=== PATIENT | male | born 1965 | race African-American/Black ===

== ENCOUNTER 2016-09-17 01:36 | Emergency (ER) | payer MEDICAID ==
[~2016-09-17] VITALS: Ht 177.8 cm; Wt 109.0 kg
[2016-09-17 01:40] VITALS: BP 128/86
== END 2016-09-17 04:00 | disposition left against medical advice (07) ==
LOC: ER 01:36
DX: R06.02 Shortness of breath (principal); Z53.21 Procedure and treatment not carried out due to patient leaving prior to being seen by health care provider

== ENCOUNTER 2016-10-19 15:32 | Emergency (ER) | payer MEDICAID ==
[~2016-10-19] VITALS: Ht 180.3 cm; Wt 120.0 kg
[~2016-10-19 15:32] MED LIST: COR6 PO; IOHEXOL-300 100 ML BOTTLE ONE; LISI-186 PO; SODIUM CHLORIDE 0.9% 10ML VIAL ONE
[2016-10-19] MEDS ORDERED: SODIUM CHLORIDE 0.9% 1,000 ML IV ONE (17:22)
[2016-10-19] MEDS ORDERED: MORPHINE SULFATE 4 MG/ML CPJ (NOT FOR IM USE) IV ONE (17:30)
[2016-10-19] MEDS ORDERED: ONDANSETRON HCL 4MG/2ML VIAL IV ONE (17:30)
[2016-10-19 17:56] LABS: HEMATOCRIT. 38.9 % (42.0-52.0); HEMOGLOBIN. 12.6 g/dL (14.0-18.0); MEAN CORPUSCULAR HEMOGLOBIN 28.3 pg (28.0-32.0); MEAN CORPUSCULAR VOLUME 87.5 fL (80.0-94.0); MEAN PLATELET VOLUME 8.9 fl (7.4-10.4); PLATELET 274 x1000/uL (130-400); RED BLOOD CELL COUNT 4.45 mill/uL (4.7-6.1); RED CELL DISTRIBUTION WIDTH 15.5 % (11.6-14.6)
[2016-10-19 17:57] LABS: INR 1.1; PROTHROMBIN TIME 11.4 sec
[2016-10-19 18:03] LABS: CARBON DIOXIDE 24 mEq/L (21-32); CHLORIDE 113 mEq/L (98-107); ETHANOL BLOOD < 10 mg/dL
[2016-10-19 18:05] LABS: CREATINE KINASE 732 IU/L (39-308)
[2016-10-19 19:34] LABS: PLATELET ESTIMATE NORMAL
[2016-10-19 19:41] LABS: CLARITY URINE CLEAR (CLEAR); COLOR URINE YELLOW (YELLOW); GLUCOSE URINE NEGATIVE (NEGATIVE); KETONES URINE 1+ (NEGATIVE); LEUKOCYTE ESTERASE URINE NEGATIVE (NEGATIVE); NITRITE URINE NEGATIVE (NEGATIVE); OCCULT BLOOD URINE NEGATIVE (NEGATIVE); PH URINE 5.5 (4.5-8.0); PROTEIN URINE 1+ (NEGATIVE); SPECIFIC GRAVITY URINE 1.031 (1.005-1.030); UROBILINOGEN URINE 0.2 E.U./dL (0.2-1.0)
[2016-10-19] MEDS ORDERED: KETOROLAC 15MG/ML VIAL IV ONE (19:45)
[2016-10-19 21:00] VITALS: BP 157/90
[2016-10-19 21:43] LABS: *AMPHETAMINES SCREEN URINE PRESUMTIVE POSITIVE (NEGATIVE); *BARBITURATES SCREEN URINE NEGATIVE (NEGATIVE); *BENZODIAZEPINES SCREEN URINE NEGATIVE (NEGATIVE); *COCAINE SCREEN URINE NEGATIVE (NEGATIVE); CANNABINOID URINE SCREEN NEGATIVE (NEGATIVE); METHADONE URINE SCREEN NEGATIVE (NEGATIVE); OPIATES URINE SCREEN PRESUMTIVE POSITIVE (NEGATIVE); PHENCYCLIDINE URINE SCREEN PRESUMTIVE POSITIVE (NEGATIVE)
== END 2016-10-19 21:33 | disposition left against medical advice (07) ==
LOC: ER 15:54
DX: D72.829 Elevated white blood cell count, unspecified (principal); R79.89 Other specified abnormal findings of blood chemistry; F19.10 Other psychoactive substance abuse, uncomplicated; I25.10 Atherosclerotic heart disease of native coronary artery without angina pectoris; I50.9 Heart failure, unspecified; I11.0 Hypertensive heart disease with heart failure; R10.9 Unspecified abdominal pain; R07.9 Chest pain, unspecified; J44.9 Chronic obstructive pulmonary disease, unspecified; E11.9 Type 2 diabetes mellitus without complications; F12.10 Cannabis abuse, uncomplicated; R11.0 Nausea
CPT/HCPCS: 36415; 70450; 71010; 71260; 74177; 80053; 80305; 81001; 82550; 83605; 83690; 84484; 85025; 85610; 87040; 87086; 93005; 96361; 96374; 96375; 99285; A4216; G0482; J1885; J2270; J2405; Q9967; Z7610; J7030